=== PATIENT | male | born 1990 | race Caucasian/White ===

== ENCOUNTER 2020-08-27 03:25 | Emergency (ER) | payer BC ==
[~2020-08-27] VITALS: Ht 180.3 cm; Wt 79.4 kg
[2020-08-27 03:27] VITALS: BP 123/91
--- NOTE | 2020-08-27 03:37 | NUR ---
SEEN AND EXAMINED BY ANN WITH ORDER AND CARRIED OUT.
[2020-08-27] MEDS ORDERED: predniSONE 20 MG TAB PO ONE (04:05)
[2020-08-27 04:27] VITALS: BP 123/91
--- NOTE | 2020-08-27 04:27 | NUR ---
Patient discharged with v/s stable. Written and verbal after care instructions given and explained. Patient alert, oriented and verbalized understanding of instructions. Ambulatory with steady gait. All questions addressed prior to discharge. ID band removed. Patient advised to follow up with PMD. Rx of BENEDRYL AND PREDNISONE given. Patient educated on indication of medication including possible reaction and side effects. Opportunity to ask questions provided and answered.
== END 2020-08-27 04:27 | disposition home or self-care (01) ==
LOC: MED 03:25
DX: L50.9 Urticaria, unspecified (principal)
CPT/HCPCS: 99283; J7512